=== PATIENT | male | born 1955 | race Caucasian/White ===

== ENCOUNTER 2019-03-04 07:57 | Day surgery (SDC) | payer BC ==
[2019-03-04] MEDS ORDERED: Dexamethasone 4 MG/ML SDV IV ONE (07:58)
[2019-03-04] MEDS ORDERED: Midazolam 1 MG/ML 2 ML SDV IV ONE (07:58)
[2019-03-04] MEDS ORDERED: Proparacaine 0.5% Ophth Soln 15 ML Bottle EYELF ONE (08:00)
[2019-03-04] MEDS ORDERED: Timolol Maleate 0.5% Ophth Soln 5 ML Bottle EYELF ONE (08:00)
[2019-03-04] MEDS ORDERED: Dilation Soln 1 EA EACH EYELF ONE (08:00)
[2019-03-04] MEDS ORDERED: Phenylephrine 10% Ophth Soln 5 ML Bot EYELF ONE (08:00)
[2019-03-04] MEDS ORDERED: Moxifloxacin 0.5% Ophth Soln 3 ML Bottle EYELF ONE (08:00)
[2019-03-04] MEDS ORDERED: Sodium Chloride 0.9% 10 ML Syringe FLUSH SCH (08:00)
[2019-03-04] MEDS ORDERED: Povidone-Iodine 5% Sterile Ophth Soln 30 ML Bottle EYELF ONE ×2 (08:00→09:30)
[2019-03-04] MEDS ORDERED: Tetracaine HCl/PF 0.5% 4 ML Bottle EYELF ONE (09:29)
[2019-03-04] MEDS ORDERED: Lidocaine 1% 30 ML SDV ONE (09:29)
[2019-03-04] MEDS ORDERED: Apraclonidine 0.5% Ophth Soln 5 ML Bot EYELF ONE (09:30)
[2019-03-04] MEDS ORDERED: Dexamethasone/Neomycin/Polymyxin B Ophth Oint 3.5 GM Tube EYELF ONE (09:30)
[2019-03-04] MEDS ORDERED: Balanced Salt Solution Ophth Irrig 500 ML Bottle IOCULAR ONE (09:30)
[2019-03-04] MEDS ORDERED: Chondroitin Sulfate/Hyaluronate Sodium Ophth Inj 0.75 ML Syringe EYELF ONE (09:30)
[2019-03-04] MEDS ORDERED: Diclofenac Sodium 0.1% Ophth Soln 5 ML Bottle EYELF ONE (09:30)
[2019-03-04] MEDS ORDERED: Vancomycin 500 MG SDV EYELF ONE (09:31)
--- NOTE | 2019-03-04 14:27 | OR ---
DATE: 03/04/2019 PREOPERATIVE DIAGNOSIS: Visually significant mixed cataract, left eye. POSTOPERATIVE DIAGNOSIS: Visually significant mixed cataract, left eye. PROCEDURE: Extracapsular cataract extraction with intraocular lens implant, left eye. ANESTHESIA: Topical/local MAC. COMPLICATIONS: None. INDICATION: Mr. Caal was seen in the clinic. He has complained of a slow progressive decrease in vision. Examination revealed visually significant mixed cataract. He is unhappy with his vision, requested cataract surgery. I explained options, offered cataract surgery, and I explained risks preoperatively including, but not limited to, infection, retinal detachment, loss of vision, need for additional surgery, amongst others. He has preexisting corneal astigmatism and he has requested a Toric implant. He understands that he may still require glasses for some activities. OPERATIVE DESCRIPTION: After informed consent was obtained and the risks, benefits, and alternatives were explained, the patient was brought to the operative suite and topical anesthesia was administered. The patient was then prepped and draped in the sterile fashion and attention was placed on the left eye. A sterile lid speculum was placed into the left eye to allow operative exposure. A full-thickness paracentesis was made in the temporal portion of the operative eye. Preservative-free lidocaine 0.1 mL was injected into the anterior chamber followed by viscoelastic. A full-thickness corneal incision was then made into the anterior chamber. A bent needle cystotome was used to create a small marta in the anterior capsule. The capsulorrhexis forceps was then used to create a 360-degree curvilinear capsulorrhexis. The nucleus was then removed using a phacoemulsification handpiece and the remaining cortical material was then removed with irrigation and aspiration handpiece. Following removal of the cortical material, the capsular bag was then inspected and noted to be free of any holes or tears. Viscoelastic was then injected into the capsular bag and the intraocular lens was inserted into the capsular bag. The implant was oriented to correspond with preoperative corneal lord made with the patient in the upright position. The viscoelastic material was then removed from both the anterior and posterior chambers and from behind the IOL. The lens and capsular bag were then reinspected. The IOL was well centered and the capsular bag intact. The wound and paracentesis sites were inspected and hydrated with balanced saline solution. Both were found to be self-sealing. The intraocular pressure was assessed digitally and found to be within normal range. A good red reflex was noted at the completion of the procedure. No complications occurred during the operation. At the completion of the procedure, Maxitrol, Voltaren, and Iopidine drops were placed into the operative eye. A sterile eye shield was placed over the operative eye and the patient was transported to the postoperative recovery area having tolerated the procedure well. Postoperative instructions were given along with a postoperative appointment. The patient was advised to call with any questions or concerns. [facility] /[phone]
== END 2019-03-04 10:43 | disposition home or self-care (01) ==
LOC: DL.SDS 07:57
PROVIDERS: ATTEND Ophthalmology
DX: H26.8 Other specified cataract (principal); I12.9 Hypertensive chronic kidney disease with stage 1 through stage 4 chronic kidney disease, or unspecified chronic kidney disease; N18.3 Chronic kidney disease, stage 3 (moderate); M51.36 Other intervertebral disc degeneration, lumbar region; M48.00 Spinal stenosis, site unspecified; E66.01 Morbid (severe) obesity due to excess calories; Z68.35 Body mass index [BMI] 35.0-35.9, adult; Z98.41 Cataract extraction status, right eye; Z79.899 Other long term (current) drug therapy; Z88.8 Allergy status to other drugs, medicaments and biological substances
CPT/HCPCS: 66984; A9270; J1100; J2001; J2250; J3370

== ENCOUNTER 2019-10-19 03:38 | Emergency (ER) | payer BC ==
[2019-10-19] MEDS ORDERED: Aspirin 81 MG Tab.Chew PO ONE (04:02)
[2019-10-19 04:32] LABS: ANION GAP 15.2 mEq/L (7-13); CHLORIDE,CL 105 mmol/L (98-107); SODIUM,NA 142 mmol/L (136-145)
--- NOTE | 2019-10-19 04:51 | EDM.PDOC ---
"<Sylvia Rivsa - Last Filed: 10/19/19 06:53> ED HPI GENERAL MEDICAL PROBLEM - General Chief Complaint: Chest Pain Stated Complaint: CHEST PAIN Time Seen by Provider: 10/19/19 03:50 Source of Information: Reports: Patient History Limitations: Reports: No Limitations - History of Present Illness INITIAL COMMENTS - FREE TEXT/NARRATIVE: ED with c/o chest pain across chest noticed when woke to get up to BR rated 5/ 10 described feeling SOB and light headed on way to BR. Pain completely resolved Denies any previous episodes, Has had congestion and cough x 2 weeks. No fevers or shill. - Related Data Allergies Allergy/AdvReac Type Severity Reaction Status Date / Time lisinopril Allergy Nausea and Verified 10/19/19 03:45 Vomiting Home Meds: Home Meds . 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 BIOPSY Musculoskeletal History: Reports: Back Pain, Chronic, Fracture, Other (See Below ) Other Musculoskeletal History: chronic right sided sciatica; DDD (LUMBAR); LUMBAR SPINAL STENOSIS L4-5 MILD; LUMBAR DISC DISEASE; LEFT ANKLE FRACTURE Neurological History: Reports: None Psychiatric History: Reports: None Endocrine/Metabolic History: Reports: Other (See Below) Other Endocrine/Metabolic History: HYPOPHOSPHATEMIA Hematologic History: Reports: None Immunologic History: Reports: None Oncologic (Cancer) History: Reports: None Dermatologic History: Reports: None - Infectious Disease History Infectious Disease History: Reports: None - Past Surgical History HEENT Surgical History: Reports: Cataract Surgery, Other (See Below) Other HEENT Surgeries/Procedures: 2012 - LEFT CATARACT EXTRACTION Cardiovascular Surgical History: Reports: None GI Surgical History: Reports: Hernia, Inguinal Musculoskeletal Surgical History: Reports: Amputation, Other (See Below) Other Musculoskeletal Surgeries/Procedures:: RIGHT FINGER AMPUTATION (1962) Social & Family History - Family History Family Medical History: Noncontributory - Tobacco Use Smoking Status *Q: Never Smoker Second Hand Smoke Exposure: No - Caffeine Use Caffeine Use: Reports: Tea Other Caffeine Use: 1 cup tea - Recreational Drug Use Recreational Drug Use: No ED ROS GENERAL - Review of Systems Review Of Systems: Comprehensive ROS is negative, except as noted in HPI. ED EXAM, GENERAL - Physical Exam Exam: See Below Exam Limited By: No Limitations General Appearance: Alert, No Apparent Distress, Anxious Eye Exam: Bilateral Eye: EOMI Ears: Normal External Exam, Normal TMs Nose: Normal Inspection Throat/Mouth: Normal Inspection, Normal Oropharynx Neck: Normal Inspection Respiratory/Chest: No Respiratory Distress, Lungs Clear, Normal Breath Sounds Cardiovascular: Normal Peripheral Pulses, Regular Rate, Rhythm, No Edema GI/Abdominal: Normal Bowel Sounds, Soft Back Exam: Full Range of Motion Extremities: Normal Inspection, Normal Range of Motion Neurological: Alert, Oriented, CN II-XII Intact, Normal Cognition Psychiatric: Anxious, Flat Affect Skin Exam: Warm, Dry, Intact, Normal Color EKG INTERPRETATION Rhythm: NSR Course - Vital Signs Last Recorded V/S: Last Vital Signs Temp 97.4 F 10/19/19 03:41 Pulse 66 10/19/19 03:41 Resp 18 10/19/19 03:41 BP 174/100 H 10/19/19 03:41 Pulse Ox 96 10/19/19 03:41 - Orders/Labs/Meds Orders: Active Orders 24 hr Category Date Time Status EKG 12 Lead [EKG Documentation Completion] [RC] STAT Care 10/19/19 03:51 Active EKG 12 Lead [EKG Documentation Completion] [RC] URGENT Care 10/19/19 06:55 Active EKG Documentation Completion [RC] STAT Care 10/19/19 04:02 Inactive Chest w Cont [CT] Urgent Exams 10/19/19 05:25 Taken Labs: Laboratory Tests 10/19/19 10/19/19 10/19/19 Range/Units 04:00 04:00 04:00 WBC 8.4 (5.0-10.0) 10^3/uL RBC 5.00 (4.6-6.2) 10^6/uL Hgb 14.6 (14.0-18.0) g/dL Hct 44.3 (40.0-54.0) % MCV 88.6 (80-100) fL MCH 29.2 (27.0-34.0) pg MCHC 33.0 (33.0-35.0) g/dL Plt Count 214 (150-450) 10^3/uL Neut % (Auto) 44.0 (42.2-75.2) % Lymph % (Auto) 38.7 (20.5-50.1) % Allen % (Auto) 11.7 H (2-8) % Eos % (Auto) 5.4 H (1.0-3.0) % Baso % (Auto) 0.2 (0.0-1.0) % PT 10.4 (9.0-12.0) SEC INR 1.1 (0.9-1.2) D-Dimer, Quantitative 912 H (0-400) ng/mL Sodium 142 (136-145) mmol/L Potassium 4.2 (3.5-5.1) mmol/L Chloride 105 (98-107) mmol/L Carbon Dioxide 26 (21-32) mmol/L Anion Gap 15.2 H (7-13) mEq/L BUN 21 H (7-18) mg/dL Creatinine 1.05 (0.70-1.30) mg/dL Est Cr Clr Drug Dosing 68.76 mL/min Estimated GFR (MDRD) > 60 BUN/Creatinine Ratio 20.0 (No establ ref range) Glucose 80 (74-99) mg/dL Calcium 8.4 L (8.5-10.1) mg/dL Total Bilirubin 0.2 (0.2-1.0) mg/dL AST 27 (15-37) U/L ALT 37 (16-63) U/L Alkaline Phosphatase 81 (46-116) U/L Troponin I < 0.017 (0.000-0.056) ng/mL C-Reactive Protein (0.0-0.9) mg/dL B-Natriuretic Peptide (0-100) pg/ml Total Protein 7.0 (6.4-8.2) g/dL Albumin 3.6 (3.4-5.0) g/dL Globulin 3.4 Albumin/Globulin Ratio 1.1 Amylase (25-115) U/L Lipase (73-393) U/L 10/19/19 10/19/19 10/19/19 Range/Units 04:00 04:00 07:05 WBC (5.0-10.0) 10^3/uL RBC (4.6-6.2) 10^6/uL Hgb (14.0-18.0) g/dL Hct (40.0-54.0) % MCV (80-100) fL MCH (27.0-34.0) pg MCHC (33.0-35.0) g/dL Plt Count (150-450) 10^3/uL Neut % (Auto) (42.2-75.2) % Lymph % (Auto) (20.5-50.1) % Allen % (Auto) (2-8) % Eos % (Auto) (1.0-3.0) % Baso % (Auto) (0.0-1.0) % PT (9.0-12.0) SEC INR (0.9-1.2) D-Dimer, Quantitative (0-400) ng/mL Sodium (136-145) mmol/L Potassium (3.5-5.1) mmol/L Chloride (98-107) mmol/L Carbon Dioxide (21-32) mmol/L Anion Gap (7-13) mEq/L BUN (7-18) mg/dL Creatinine (0.70-1.30) mg/dL Est Cr Clr Drug Dosing mL/min Estimated GFR (MDRD) BUN/Creatinine Ratio (No establ ref range) Glucose (74-99) mg/dL Calcium (8.5-10.1) mg/dL Total Bilirubin (0.2-1.0) mg/dL AST (15-37) U/L ALT (16-63) U/L Alkaline Phosphatase (46-116) U/L Troponin I < 0.017 (0.000-0.056) ng/mL C-Reactive Protein 0.2 (0.0-0.9) mg/dL B-Natriuretic Peptide < 5 (0-100) pg/ml Total Protein (6.4-8.2) g/dL Albumin (3.4-5.0) g/dL Globulin Albumin/Globulin Ratio Amylase 55 (25-115) U/L Lipase 214 (73-393) U/L Meds: Medications Discontinued Medications Generic Name Dose Route Start Last Admin Trade Name Freq PRN Reason Stop Dose Admin Aspirin 324 mg 10/19/19 04:02 10/19/19 04:05 Aspirin PO 10/19/19 04:03 324 mg ONETIME ONE Administration Iopamidol 100 ml 10/19/19 05:27 10/19/19 05:47 [id number] (76%) IVPUSH 10/19/19 05:28 100 ml ONETIME ONE Administration - Radiology Interpretation Free Text/Narrative:: [facility] [place] [facility] Final Radiology Report Call: [phone] assistance Online chat: [email or web address] Name: JORGE FISH Age: 64Years M Date: 10/19/2019 SSN: -- : 1955 Study: CT CHEST W Requesting Physician: SYLVIA RIVAS Images: [phone] Addl Studies: Provided Clinical History: Contrast: With Contrast Medium: [id number] Contrast Amount: 90 mL Contrast Method: rac Page 1 of 2 PROCEDURE INFORMATION: Exam: CT Chest With Contrast Exam date and time: 10/19/2019 6:04 AM Age: 64 years old Clinical indication: Other: Chest pain/d-dimer 912 TECHNIQUE: Imaging protocol: Computed tomography of the chest with intravenous contrast. Radiation optimization: All CT scans at this facility use at least one of these dose optimization techniques: automated exposure control; mA and/or kV adjustment per patient size (includes targeted exams where dose is matched to clinical indication); or iterative reconstruction. Contrast material: [id number]; Contrast volume: 90 ml; Contrast route: RAC; COMPARISON: CR Chest 1V Frontal 10/19/2019 4:21 AM FINDINGS: Lungs: There is a calcified granuloma seen in the left lower lobe posteriorly. Subtle increased interstitial markings are present bilaterally and there is mild bronchial wall thickening seen. These findings could represent mild pulmonary edema although a mild bronchitis and pneumonitis cannot be entirely excluded. Pleural space: Unremarkable. No pneumothorax. No pleural effusion. Heart: Unremarkable. No cardiomegaly. No pericardial effusion. Aorta: Unremarkable. No aortic aneurysm. Lymph nodes: Unremarkable. No enlarged lymph nodes. Gallbladder and bile ducts: There is a solitary gallstone present. Spleen: An 11 mm splenule is seen on the inferolateral aspect of the spleen. Bones/joints: Unremarkable. No acute fracture. Soft tissues: Unremarkable. JORGE FISH | Final Radiology Report CONFIDENTIALITY STATEMENT This report is intended only for use by the referring physician, and only in accordance with law. If you received this in error, call [phone]. Page 2 of 2 IMPRESSION: 1. There is no evidence for pulmonary emboli. 2. Subtle increased interstitial markings and bronchial wall thickening could represent mild pulmonary edema although mild bronchitis and pneumonitis cannot be entirely excluded. 3. Solitary gallstone Thank you for allowing us to participate in the care of your patient. Dictated and Authenticated by: Malick España MD 10/19/2019 6:28 AM Central Time ([place] & [place]) - Re-Assessments/Exams Free Text/Narrative Re-Assessment/Exam: 10/19/19 06:57 Dozing, has remained pain free. Care transfer to Dr Lindquist with shift change. Departure - Departure Disposition: Home, Self-Care 01 Clinical Impression: Atypical chest pain Instructions: Nonspecific Chest Pain, Adult Forms: ED Department Discharge Additional Instructions: Follow up in clinic this week for recheck and consideration of a cardiac stress test. Return to ER if chest pain returns or worsens. Sepsis Event Note - Evaluation Sepsis Screening Result: No Definite Risk - Focused Exam Vital Signs: Vital Signs Temp Pulse Resp BP Pulse Ox 10/19/19 03:41 97.4 F 66 18 174/100 H 96 Date Exam was Performed: 10/19/19 Time Exam was Performed: 06:53 <Collin Lindquist - Last Filed: 10/19/19 07:36> ED EXAM, GENERAL - Physical Exam Free Text/Narrative:: No change to exam as documented by Sylvia CAIN for this encounter. EKG INTERPRETATION EKG Date: 10/19/19 Time: 07:29 (Repeat EKG/comparison) Rhythm: Other (SR) Rate (Beats/Min): 59 [place]: Normal P-Wave: Present QRS: Normal (borderline low voltage in frontal leads) ST-T: Normal QT: Normal Comparison: No Change Departure - Departure Time of Disposition: 07:35 Condition: Good Sepsis Event Note - Focused Exam Date Exam was Performed: 10/19/19 Time Exam was Performed: 07:33"
[2019-10-19] MEDS ORDERED: Iopamidol 755 Mg/ML 100 ML Bottle IVPUSH ONE (05:27)
== END 2019-10-19 07:46 | disposition home or self-care (01) ==
LOC: DL.ED 03:38
DX: R07.89 Other chest pain (principal); I12.9 Hypertensive chronic kidney disease with stage 1 through stage 4 chronic kidney disease, or unspecified chronic kidney disease; N18.3 Chronic kidney disease, stage 3 (moderate); Z88.8 Allergy status to other drugs, medicaments and biological substances
CPT/HCPCS: 36415; 71045; 71260; 80053; 82150; 83690; 83880; 84484; 85025; 85379; 85610; 86140; 93005; 99285-25; A9270-GY; Q9967